=== PATIENT | male | born 1985 | race Caucasian/White ===

== ENCOUNTER 2017-08-29 04:27 | Emergency (ER) | payer MEDICAID ==
[~2017-08-29] VITALS: Ht 185.4 cm; Wt 75.7 kg
[2017-08-29 04:35] VITALS: BP 141/91; Ht 185.4 cm; Wt 75.7 kg
== END 2017-08-29 05:27 | disposition home or self-care (01) ==
LOC: ED 04:27
DX: G89.29 Other chronic pain (principal); M54.5 Low back pain; Z90.49 Acquired absence of other specified parts of digestive tract
CPT/HCPCS: J1885